=== PATIENT | male | born 1970 | race African-American/Black ===

== ENCOUNTER 2017-02-26 07:31 | Emergency (ER) | payer MEDICARE, MEDICAID ==
[2017-02-26 08:04] LABS: Hematocrit 49.3 % (42.0-52.0); Mean Platelet Volume 6.4 fL (7.4-10.4); Red Blood Cell (RBC) Count 5.49 mill/uL (4.70-6.10); White Blood Cell (WBC) Count 4.2 thou/uL (4.8-10.8)
[2017-02-26 08:25] LABS: Anisocytosis SLIGHT = 6-15 cells (100X) (0-5/hpf); Neutrophil 43 % (42-75); Reactive Lymphocytes 3 % (0-10)
== END 2017-02-26 08:28 | disposition home or self-care (01) ==
LOC: ERS 07:31
DX: R53.1 Weakness (principal); F17.210 Nicotine dependence, cigarettes, uncomplicated; Z79.899 Other long term (current) drug therapy
CPT/HCPCS: 36415; 85025; 99406

== ENCOUNTER 2018-01-08 10:04 | Emergency (ER) | payer MEDICARE, MEDICAID ==
--- NOTE | 2018-01-08 11:05 | RAD ---
PA AND LATERAL VIEWS CHEST: Date: 01/08/18 HISTORY: Cough, congestion, runny nose, sneezing, body aches. FINDINGS: Comparison made with exam of 10/05/15. The heart size is normal. The lungs are expanded without lobar consolidation, pneumothoraces, manolo p ulmonary edema, or pleural effusions. IMPRESSION: No radiographic evidence of acute cardiopulmonary process. POS: [facility]
== END 2018-01-08 11:07 | disposition home or self-care (01) ==
LOC: ERS 10:04
DX: J30.9 Allergic rhinitis, unspecified (principal); Z71.6 Tobacco abuse counseling; F17.210 Nicotine dependence, cigarettes, uncomplicated
CPT/HCPCS: 71046; 87804; 99406

== ENCOUNTER 2018-04-29 08:52 | Emergency (ER) | payer MEDICARE, MEDICAID | END 2018-04-29 10:40 | disposition home or self-care (01) | LOC: ERS 08:52 | DX: K14.8 Other diseases of tongue (principal); F17.210 Nicotine dependence, cigarettes, uncomplicated | CPT/HCPCS: 99283 ==

== ENCOUNTER 2019-08-03 08:47 | Emergency (ER) | payer MEDICARE, MEDICAID ==
[2019-08-03] MEDS ORDERED: Ketorolac Tromethamine 30 MG/ML VIAL ONE (09:15)
[2019-08-03] MEDS ORDERED: Lorazepam 2 MG/ML VIAL ONE (09:15)
[2019-08-03] MEDS ORDERED: Fentanyl 100 MCG/2 ML VIAL ONE (09:15)
[2019-08-03] MEDS ORDERED: Ondansetron PF 4 MG/2 ML Vial ONE (09:15)
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
[2019-08-03 09:49] LABS: #Basophils 0.1 thou/uL (0.0-0.2); #Eosinphils 0.1 thou/uL (0.0-0.7); #Lymphocytes 2.8 thou/uL (1.20-3.40); #Monocytes 0.5 thou/uL (0.11-0.59); #Neutrophils 2.8 thou/uL (1.40-6.50); %Basophils 0.8 % (0.0-1.0); %Eosinophils 2.1 % (0.0-10.0); %Lymphocytes 44.4 % (21.0-51.0); %Monocytes 8.1 % (0.0-10.0); %Neutrophils 44.7 % (42.0-75.0); Hemoglobin 15.9 g/dL (14.0-18.0); Mean Corpuscular HGB CONC 32.4 g/dL (32.0-36.0); Mean Corpuscular Hemoglobin 31.5 pg (27.0-31.0); Mean Corpuscular Volume 97.2 fL (78.0-98.0); Mean Platelet Volume 8.9 fL (7.4-10.4); Platelet Count 180 thou/uL (130-400); RBC Distribution Width 11.7 % (11.5-14.5); Red Blood Cell (RBC) Count 5.04 mill/uL (4.70-6.10); White Blood Cell (WBC) Count 6.3 thou/uL (4.8-10.8)
[2019-08-03 09:54] LABS: Bilirubin Negative (Negative); Blood, Urine Negative (Negative); Clarity Clear (Clear); Glucose, Urine (Dipstick) Normal (Negative); Leukocyte Negative Leu/uL (Negative); Nitrite Negative (Negative); Protein, Urine (Dipstick) Negative (Neg-Trace); Urobilinogen Normal mg/dL (Less than 2)
[2019-08-03 10:05] LABS: ALT (SGPT) 28 U/L (8-55); AST (SGOT) 20 U/L (5-34); Albumin 4.5 g/dL (3.5-5.0); Alkaline Phosphatase 58 U/L (40-110); Anion Gap 12 mmol/L (10-20); BUN (Urea Nitrogen) 15 mg/dL (8.4-25.7); Bilirubin, Total 0.4 mg/dL (0.2-1.2); CK (CPK) 366 U/L (30-200); Calc. Creatinine Clearance 0 mL/min (70-130); Calcium 9.6 mg/dL (7.8-10.44); Carbon Dioxide 25 mmol/L (22-29); Chloride 104 mmol/L (98-107); Estimated GFR-MDRD Greater than 90; Globulin 3.5 g/dL (2.4-3.5); Glucose 111 mg/dL (70-105); Lipase 151 U/L (8-78); Potassium 4.2 mmol/L (3.5-5.1); Sodium 137 mmol/L (136-145)
--- NOTE | 2019-08-03 11:21 | PDOC.FPRHP ---
- Allergies/Adverse Reactions Allergies Allergy/AdvReac Type Severity Reaction Status Date / Time No Known Allergies Allergy Unverified 06/27/19 03:00 - Home Medications Medication Instructions Recorded Confirmed Type Pantoprazole [Protonix] 40 mg PO DAILY 12/13/16 12/13/16 History Docusate [Colace] 100 mg PO BID #60 cap 12/14/16 Rx Ferrous Sulfate [Feosol] 325 mg PO TID-WM #90 tab 12/14/16 Rx - History PMHx: PSHx: FHx: Social: - Vital signs BP: 130/90, Pulse: 76, Resp: 18, Temp 98.7, Pain: 10, O2 sat: 95, Time: 2019 08:57 weight: 140kg FMR H&P: Results - Labs Result Diagrams: 08/03/19 09:10 08/03/19 09:10 Lab results: WBC 6.3 thou/uL (4.8-10.8) 08/03/19 09:10 Hgb 15.9 g/dL (14.0-18.0) 08/03/19 09:10 Hct 49.0 % (42.0-52.0) 08/03/19 09:10 MCV 97.2 fL (78.0-98.0) 08/03/19 09:10 Plt Count 180 thou/uL (130-400) 08/03/19 09:10 Neutrophils % 44.7 % (42.0-75.0) 08/03/19 09:10 Sodium 137 mmol/L (136-145) 08/03/19 09:10 Potassium 4.2 mmol/L (3.5-5.1) 08/03/19 09:10 Chloride 104 mmol/L (98-107) 08/03/19 09:10 Carbon Dioxide 25 mmol/L (22-29) 08/03/19 09:10 BUN 15 mg/dL (8.4-25.7) 08/03/19 09:10 Creatinine 0.89 mg/dL (0.7-1.3) 08/03/19 09:10 Glucose 111 mg/dL (70-105) H 08/03/19 09:10 Calcium 9.6 mg/dL (7.8-10.44) 08/03/19 09:10 Total Bilirubin 0.4 mg/dL (0.2-1.2) 08/03/19 09:10 AST 20 U/L (5-34) 08/03/19 09:10 ALT 28 U/L (8-55) 08/03/19 09:10 Alkaline Phosphatase 58 U/L (40-110) 08/03/19 09:10 Creatine Kinase 366 U/L (30-200) H 08/03/19 09:10 Serum Total Protein 8.0 g/dL (6.0-8.3) 08/03/19 09:10 Albumin 4.5 g/dL (3.5-5.0) 08/03/19 09:10 Lipase 151 U/L (8-78) H 08/03/19 09:10 Urine Ketones Negative mg/dL (Negative) 08/03/19 09:20 Urine Blood Negative (Negative) 08/03/19 09:20 Urine Nitrite Negative (Negative) 08/03/19 09:20 Ur Leukocyte Esterase Negative Ck/uL (Negative) 08/03/19 09:20 FMR H&P: Upper Level - Plan Date/Time: 08/03/19 1118 I, [], have evaluated this patient and agree with findings/plan as outlined by undergraduate intern resident. Pertinent changes/additions are listed here.
--- NOTE | 2019-08-03 12:41 | PDOC.EVN ---
Addendum - Attending - Attending Attestation Date/Time: 08/03/19 6414 I personally evaluated the patient and discussed the management with Dr. Abarca. I agree with the History, Examination, Assessment and Plan documented in his dictated short stay summary with any addition or exceptions noted below. Patient seen and evaluated in ED. He complains of back pain that is worse with movement and improved with rest. He has no abdominal pain, and has chronic ventral hernias that he reports are stable for years. Tolerating normal diet without pain. His only concern was "his kidney" due to his back pain. Exam shows paraspinal muscle TTP. Abdomen is soft and nontender. His lab evaluation is overall stable. The patient does not want admission to the hospital and I do not think that is is necessary at this time. Patient will be discharged from the ED with Rx sent to pharmacy. Advised follow up with [facility] in 1-2 weeks.
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
== END 2019-08-03 13:04 | disposition short-term general hospital (02) ==
LOC: ERS 08:47
DX: R10.9 Unspecified abdominal pain (principal)
CPT/HCPCS: 74176; 80053; 81003; 82550; 83690; 85025; 96361; 96374; 96375; J1885; J2060; J2405; J3010

== ENCOUNTER 2022-08-05 14:06 | Outpatient (CLI) | payer MEDICARE, OTHER | END 2022-08-05 14:07 | disposition home or self-care (01) | LOC: CT 14:06 | PROVIDERS: ATTEND Student in an Organized Health Care Education/Training Program | DX: Z12.2 Encounter for screening for malignant neoplasm of respiratory organs (principal); F17.211 Nicotine dependence, cigarettes, in remission | CPT/HCPCS: 71271 ==

== ENCOUNTER 2022-11-15 13:19 | Outpatient (CLI) | payer MEDICARE, OTHER ==
[2022-11-15] MEDS ORDERED: Iopamidol 370 76% 100 ML VIAL ONE (14:16)
== END 2022-11-15 13:20 | disposition home or self-care (01) ==
LOC: BICCT 13:19
PROVIDERS: ATTEND Internal Medicine
DX: K43.9 Ventral hernia without obstruction or gangrene (principal); K92.2 Gastrointestinal hemorrhage, unspecified
CPT/HCPCS: 74177; Q9967

== ENCOUNTER 2023-09-24 08:36 | Outpatient (CLI) | payer MEDICARE, MEDICAID ==
[2023-09-24 11:18] LABS: #Basophils 0.01 10x3/uL (0.0-0.2); #Eosinphils 0.04 10x3/uL (0.0-0.5); #Monocytes 0.25 10x3/uL (0.0-1.1); #Neutrophils 1.53 10x3/uL (1.5-8.4); %Basophils 0.2 % (0.0-2.0); %Eosinophils 0.9 % (0.0-6.0); %Lymphocytes 57.9 % (18.0-47.0); %Monocytes 5.7 % (0.0-10.0); %Neutrophils 35.3 % (40.0-75.0); Hematocrit 44.3 % (38.8-50.0); Mean Corpuscular HGB CONC 33.9 g/dL (32.0-36.0); Mean Corpuscular Volume 97.4 fL (81.2-95.1); Mean Platelet Volume 10.6 fL (7.4-10.4); Platelet Count 172 10x3/uL (150-450); RBC Distribution Width 12.5 % (11.5-14.5); Red Blood Cell (RBC) Count 4.55 10x6/uL (4.32-5.72); White Blood Cell (WBC) Count 4.4 10x3/uL (3.5-10.5)
[2023-09-24 11:20] LABS: Anion Gap 9 mmol/L (10-20); BUN (Urea Nitrogen) 17 mg/dL (8.4-25.7); Calc. Creatinine Clearance 0 mL/min (70-130); Calcium 9.1 mg/dL (7.8-10.44); Carbon Dioxide 25 mmol/L (22-29); Chloride 105 mmol/L (98-107); Estimated GFR 104; Glucose 100 mg/dL (70-105); Sodium 135 mmol/L (136-145)
== END 2023-09-24 08:37 | disposition home or self-care (01) ==
LOC: LABBT 08:36
PROVIDERS: ATTEND Surgery
DX: Z01.818 Encounter for other preprocedural examination (principal); K43.2 Incisional hernia without obstruction or gangrene
CPT/HCPCS: 80048; 85025; 93005; 93010

== ENCOUNTER 2023-10-01 08:17 | Inpatient (IN) | payer MEDICARE, MEDICAID ==
[2023-09-24 09:29] VITALS: BMI 37.6
[2023-10-01] MEDS ORDERED: fentaNYL PF 100 MCG/2 ML SYRINGE ONE ×2 (09:57→14:54)
[2023-10-01] MEDS ORDERED: PROPOFOL 20 ML ONE (09:57)
[2023-10-01] MEDS ORDERED: Lidocaine 1% PF 5 ML VIAL ONE (09:58)
[2023-10-01] MEDS ORDERED: Rocuronium Bromide 10 MG/ML (10ML VIAL) ONE ×2 (09:58→14:08)
[2023-10-01] MEDS ORDERED: Bupivacaine 0.25% HCL 30 ML VIAL ONE (10:57)
[2023-10-01] MEDS ORDERED: EPINEPHrine 1 MG/ML VIAL ONE (10:57)
[2023-10-01] MEDS ORDERED: CEFAZOLIN 2 GM VIAL ONE (11:38)
[2023-10-01] MEDS ORDERED: Midazolam HCl 2 mg/2 ml Vial ONE (11:38)
[2023-10-01] MEDS ORDERED: Sodium Chloride 0.9% 100 ML ONE (11:38)
[2023-10-01] MEDS ORDERED: SUGAMMADEX SODIUM 200 MG/2 ML VIAL ONE (14:34)
[2023-10-01] MEDS ORDERED: Ondansetron PF 4 MG/2 ML Vial ONE (14:34)
[2023-10-01] MEDS ORDERED: HYDROmorphone 0.5 MG/0.5 ML SYRINGE ONE ×2 (14:55→15:19)
[2023-10-01] MEDS ORDERED: fentaNYL 50 mcg/mL 1 mL Vial ONE ×2 (15:44→15:58)
[2023-10-01] MEDS ORDERED: HYDROcodone/Acetaminophen 5/325 mg Tablet ONE (17:18)
[2023-10-01] MEDS ORDERED: Promethazine HCl 25 MG/ML VIAL IM PRN (19:41)
[2023-10-01] MEDS ORDERED: Ipratropium/Albuterol 3 ML NEB NEB PRN (19:41)
[2023-10-01] MEDS ORDERED: Dextrose 50% Abboject 50 ML SYRINGE SLOW IVP PRN (19:41)
[2023-10-01] MEDS ORDERED: hydrALAZINE 20 MG/ML VIAL SLOW IVP PRN (19:41)
[2023-10-01] MEDS ORDERED: Dextrose 5% in Water 1,000 ML IV PRN (19:41)
[2023-10-01] MEDS ORDERED: Ondansetron PF 4 MG/2 ML Vial IVP PRN (19:41)
[2023-10-01] MEDS ORDERED: Glucagon 1 MG/ML KIT IM PRN (19:41)
[2023-10-01] MEDS ORDERED: Morphine 4 MG/ML VIAL SLOW IVP PRN (19:41)
[2023-10-01] MEDS: Sodium Chloride 0.9% 1,000 ML IV SCH (20:22)
[2023-10-01] MEDS: Famotidine 20 MG TAB PO SCH (20:23)
[2023-10-01] MEDS: Famotidine/PF 20 mg/2ml Vial SLOW IVP SCH (20:24)
[2023-10-01] MEDS: Ketorolac Tromethamine 30 MG (1 mL) VIAL IVP PRN (20:24)
[2023-10-01] MEDS: HYDROcodone/Acetaminophen 7.5/325 mg Tablet PO PRN (22:22)
[2023-10-02] MEDS: Polyethylene Glycol 3350 17 GM Packet PO SCH (08:59)
[2023-10-02 12:57] VITALS: BP 136/75; TEMP 97.7
[2023-10-02] MEDS: HYDROcodone/Acetaminophen 7.5/325 mg Tablet PO PRN (13:01)
== END 2023-10-02 14:07 | disposition home or self-care (01) | DRG 355 ==
LOC: SDC 08:17 → T4-B 20:05
PROVIDERS: ADMIT Surgery; ATTEND Surgery
PROC: 0WUF4JZ Supplement Abdominal Wall with Synthetic Substitute, Percutaneous Endoscopic Approach (ICD-10-PCS; principal; 2023-10-01)
PROC: 8E0W4CZ Robotic Assisted Procedure of Trunk Region, Percutaneous Endoscopic Approach (ICD-10-PCS; 2023-10-01)
PROC: 3E033XZ Introduction of Vasopressor into Peripheral Vein, Percutaneous Approach (ICD-10-PCS; 2023-10-01)
DX: K43.2 Incisional hernia without obstruction or gangrene (principal); F10.20 Alcohol dependence, uncomplicated; G89.29 Other chronic pain; Z79.899 Other long term (current) drug therapy; Z98.890 Other specified postprocedural states; Z87.891 Personal history of nicotine dependence
CPT/HCPCS: A4314; C1781; J0171; J0665; J1170; J1885; J2250; J2405; J2704; J3010; J3490; J7050

== ENCOUNTER 2024-05-28 07:46 | Outpatient (CLI) | payer MEDICARE, MEDICAID | END 2024-05-28 07:47 | disposition home or self-care (01) | LOC: BICCT 07:46 | PROVIDERS: ATTEND Surgery | DX: K43.2 Incisional hernia without obstruction or gangrene (principal); K40.90 Unilateral inguinal hernia, without obstruction or gangrene, not specified as recurrent; Z98.890 Other specified postprocedural states | CPT/HCPCS: 74177 ==